=== PATIENT | male | born 1960 | race Hispanic/Latino ===

== ENCOUNTER 2019-03-14 09:48 | Observation (INO) | payer BC ==
[2019-03-12 11:29] LABS: BASOPHILS % (AUTO) 0.7 % (0.0-5.0); EOSINOPHILS % (AUTO) 1.7 % (0.0-8.0); HEMATOCRIT 45.4 % (42-54); LYMPHOCYTES % (AUTO) 14.7 % (21.0-51.0); MEAN CORPUSCULAR HEMOGLOBIN 30.1 pg (27.0-33.0); MEAN CORPUSCULAR HGB CONC 33.9 g/dL (32.0-36.0); MEAN CORPUSCULAR VOLUME 88.8 fL (79-99); MONOCYTES % (AUTO) 5.8 % (3.0-13.0); NEUTROPHILS % (AUTO) 77.1 % (40.0-77.0); PLATELET COUNT (AUTO) 178 K/uL (130-400); RED BLOOD CELL COUNT(AUTO) 5.11 MIL/uL (4.50-6.20); RED CELL DISTRIBUTION WIDTH 13.7 % (11.0-15.5); WHITE BLOOD COUNT (AUTO) 7.9 K/uL (4.8-10.8)
[2019-03-12 11:36] LABS: CREATININE 1.3 mg/dL (0.5-1.5); POTASSIUM 4.7 mmol/L (3.5-5.1)
[2019-03-12 11:53] LABS: INR 0.96 (0.85-1.15); PROTHROMBIN TIME 10.1 SEC (9.6-11.6)
[2019-03-12 11:56] VITALS: BP 148/79
[2019-03-12 12:28] LABS: PARTIAL THROMBOPLASTIN TIME 28.5 SEC (26.3-35.5)
--- NOTE | 2019-03-12 14:03 | NUR ---
called Fransico macario to notifiy him of BUN 24, WATER TAXI DRIVER 1.3 and advised him pt on metformin, no new orders no repeat ordered day of procedure.
[~2019-03-14] VITALS: Ht 180.8 cm; Wt 118.3 kg
[2019-03-14] VITALS (11 sets, daily range): BP systolic 107–142; BP diastolic 66–98
[~2019-03-14 09:48] MED LIST: ASPI-1197 PO; ATOR10 PO; CLOP75TA14 PO; METF-444 PO; METO-408 PO; SODIUM CHLORIDE 0.9% 1000ML 1,000 ML IV SCH
--- NOTE | 2019-03-14 11:56 | NUR ---
Doctor Stormy Reveles discussed with patient and family regarding procedure and options. Two options were discussed. First option would be to removed current device and replace it with new device. Second option would be to replace the device with an added lead (risk factor were discussed such as lung perforation, possible infection, cardiac perforation, bleeding). Patient and family decided to choose the 2nd option. Doctor Stormy Reveles did explain risk factor several times and family verbally repeated risk factors to me to confirm understanding after Doctor Reveles left the room.
[2019-03-14] MEDS ORDERED: CEFAZOLIN SODIUM 1 GM VIAL ONE (13:29)
[2019-03-14] MEDS ORDERED: BUPIVACAINE/PF 0.25% 30ML VIAL IJ ONE (13:29)
[2019-03-14] MEDS ORDERED: LIDOCAINE HCL 1% MDV 50ML VIAL ONE (13:30)
[2019-03-14] MEDS ORDERED: IODIXANOL 320 MG/ML 100 ML VIAL ONE (13:30)
[2019-03-14] MEDS ORDERED: MEPERIDINE-PF 25 MG/ML SYG ONE ×4 (13:30→14:43)
[2019-03-14] MEDS ORDERED: MIDAZOLAM HCL 1 MG/ML 2ML VIAL ONE ×4 (13:30→14:43)
[2019-03-14] MEDS ORDERED: THROMBIN-JMI 5000 UNIT/VIAL TP ONE (15:22)
[2019-03-14] MEDS ORDERED: OCTYL 2-CYANOACRYLATE 1 EACH TP ONE (15:39)
[2019-03-14] MEDS ORDERED: DEXTROSE 50%-WATER 50 ML DISP.SYRIN IV PRN (16:00)
[2019-03-14] MEDS ORDERED: ACETAMINOPHEN-CODEINE 300/30MG TAB PO PRN ×2 (16:00)
[2019-03-14] MEDS ORDERED: ONDANSETRON HCL 4 MG/2 ML VIAL IV PRN (16:00)
[2019-03-14] MEDS: INSULIN HUMULIN R 100 UNIT/ML 3ML SQ SCH ×2 (16:30→21:00)
--- NOTE | 2019-03-14 19:00 | NUR ---
Received bedside report,pt.S/P Biv. Ventricular AICD placement today .Pt. sitting up in recliner .Left arm sling on and pressure dressing intact.Pending to be seen by the hospitalist.
--- NOTE | 2019-03-14 19:10 | NUR ---
REPORT GIVEN TO DAFNE MILLER. REPORTED OF PENDING CONSULT WITH HOSPITALIST TO RETURN CALL. VERBALIZED UNDERSTANDING.
[2019-03-14] MEDS ORDERED: MORPHINE SULFATE 2 MG/ML 1ML SYG IVP PRN (19:30)
--- NOTE | 2019-03-14 19:50 | NUR ---
RN [facility] for hospitalist here and saw the pt. updated with pt. condition.
[2019-03-14] MEDS ORDERED: LOSARTAN 50 MG TABLET PO SCH (21:00)
[2019-03-14] MEDS: FAMOTIDINE 20MG TAB 20 MG TAB PO SCH (21:39)
[2019-03-14] MEDS: CEFAZOLIN SODIUM 1 GM VIAL IVP SCH (21:42)
[2019-03-14] MEDS: METOPROLOL TARTRATE 25 MG TAB PO SCH (21:42)
[2019-03-15 03:00] VITALS: BP 103/66
[2019-03-15] MEDS: CEFAZOLIN SODIUM 1 GM VIAL IVP SCH (06:32)
[2019-03-15] MEDS: INSULIN HUMULIN R 100 UNIT/ML 3ML SQ SCH ×2 (06:49→11:30)
[2019-03-15 07:37] VITALS: BP 106/69
[2019-03-15] MEDS ORDERED: ATORVASTATIN CALCIUM 10 MG TABLET PO SCH (09:00)
[2019-03-15] MEDS ORDERED: CLOPIDOGREL BISULFATE 75 MG TAB PO SCH (09:00)
[2019-03-15] MEDS ORDERED: ASPIRIN 81MG TAB.CHEW PO SCH (09:00)
[2019-03-15] MEDS: FAMOTIDINE 20MG TAB 20 MG TAB PO SCH (09:26)
[2019-03-15] MEDS: METOPROLOL TARTRATE 25 MG TAB PO SCH (09:26)
[2019-03-15 11:18] VITALS: BP 114/74
== END 2019-03-15 16:45 | disposition home or self-care (01) ==
LOC: DAH 09:48 → 2DH 09:49
PROVIDERS: ADMIT Internal Medicine; ATTEND Internal Medicine
DX: I25.5 Ischemic cardiomyopathy (principal); E11.9 Type 2 diabetes mellitus without complications; E66.9 Obesity, unspecified; E78.5 Hyperlipidemia, unspecified; I10 Essential (primary) hypertension; I25.10 Atherosclerotic heart disease of native coronary artery without angina pectoris; I25.2 Old myocardial infarction; F40.240 Claustrophobia; Z45.02 Encounter for adjustment and management of automatic implantable cardiac defibrillator; Z91.14 Patient's other noncompliance with medication regimen; Z95.1 Presence of aortocoronary bypass graft; Z95.810 Presence of automatic (implantable) cardiac defibrillator; Z81.8 Family history of other mental and behavioral disorders; Z79.899 Other long term (current) drug therapy; Z90.49 Acquired absence of other specified parts of digestive tract; Z79.01 Long term (current) use of anticoagulants
CPT/HCPCS: 33225; 33264; 36415; 71046; 80048; 82948 ×6; 85025; 85610; 85730; 93005; 96374; 96376; A4218 ×2; A4606; C1769 ×3; C1882; C1894; C1900; G0378 ×25; J0690 ×3; J2175 ×4; J2250 ×4; J3490 ×3; Q9967; 99156; 99157